=== PATIENT | male | born 1930 | race Caucasian/White ===

== ENCOUNTER 2018-04-08 15:28 | Inpatient (IN) | payer OTHER ==
[~2018-04-08] VITALS: Ht 172.7 cm; Wt 90.9 kg
[2018-04-08 16:48] LABS: BASOPHIL (%) 0.7 % (0-1); EOSINOPHIL (%) 1.5 % (0-5); EOSINOPHIL COUNT 0.1 K/uL (0-0.3); HEMATOCRIT 26.8 % (38.0-50.0); HEMOGLOBIN 9.2 G/DL (12.5-16.6); IMMATURE GRANULOCYTE (%) 0.5 % (0.0-0.7); LYMPHOCYTE (%) 12.2 % (15-42); LYMPHOCYTE COUNT 0.7 K/uL (1.0-2.8); MCH 30.8 PG (29.0-34.0); MCHC 34.3 G/DL (30.0-36.0); MCV 89.6 FL (86-99); MONOCYTE COUNT 0.4 K/uL (0-0.8); NEUTROPHIL (%) 77.1 % (45-76); NEUTROPHIL COUNT 4.2 K/uL (1.8-6.4); PLATELET COUNT 75 K/uL (156-360); RBC DIS.WIDTH-CV 14.5 % (11.8-14.6); RBC DIS.WIDTH-SD 46.6 % (39-53); RED BLOOD COUNT 2.99 M/uL (4.00-5.50); WHITE BLOOD COUNT 5.5 K/uL (4.1-10.2)
[2018-04-08 16:59] LABS: CHLORIDE 111 mEq/L (99-109); SODIUM 146 mEq/L (136-147)
[2018-04-08 17:01] LABS: GLUCOSE 138 mg/dL (70-99); TOTAL PROTEIN 6.6 g/dL (6.4-8.3)
[2018-04-08 17:03] LABS: TOTAL BILIRUBIN 1.6 mg/dL (0.0-1.0)
[2018-04-08 17:04] LABS: ALKALINE PHOSPHATASE 66 IU/L (3-129)
[2018-04-08 17:05] LABS: CREATININE 5.8 mg/dL (0.6-1.3); GFR ESTIMATE (CALCULATED) 10 mL/min/ (58.99-99999)
[2018-04-08 17:06] LABS: AST (GOT) 11 IU/L (2-34); UREA NITROGEN (BUN) 77 mg/dL (9-23)
[2018-04-08 17:07] LABS: ALT (GPT) 9 IU/L (3-49)
[2018-04-08 17:08] LABS: TROP-I INTERPRETATION NEGATIVE; TROPONIN-I 0.03 ng/mL (0.0-0.30)
[2018-04-08 17:58] LABS: APPEARANCE CLEAR ((CLEAR)); BILIRUBIN NEGATIVE; BLOOD NEGATIVE; COLOR YELLOW ((YELLOW)); GLUCOSE (STRIP) NEGATIVE; KETONES NEGATIVE; LEUKOCYTES NEGATIVE; NITRITE NEGATIVE; PROTEIN (STRIP) NEGATIVE; UROBILINOGEN 0.2 MG/DL (0.2-1.0)
[2018-04-08] MEDS ORDERED: LIPITOR20 MG PO ×2 (18:15→18:16)
[2018-04-08] MEDS ORDERED: CASODEX50 MG PO (18:17)
[2018-04-08] MEDS ORDERED: ROCALTROL0.25 MCG PO (18:17)
[2018-04-08] MEDS ORDERED: COSOPT EYE DROP10 ML BOTH EYES (18:18)
[2018-04-08] MEDS ORDERED: ERGOCALCIF50000 UNIT PO (18:19)
[2018-04-08] MEDS ORDERED: PROSCAR5 MG PO (18:24)
[2018-04-08] MEDS ORDERED: LASIX20 MG PO (18:26)
[2018-04-08] MEDS ORDERED: FOSRENOL500 MG PO (18:27)
[2018-04-08] MEDS ORDERED: XALATAN2.5 ML BOTH EYES (18:28)
[2018-04-08] MEDS ORDERED: SYNTHROID25 MCG PO (18:30)
[2018-04-08] MEDS ORDERED: LOPRESSOR50 MG PO (18:31)
[2018-04-08] MEDS ORDERED: PRILOSEC20 MG PO (18:33)
[2018-04-08] MEDS ORDERED: ZOFRAN4 MG PO (18:34)
[2018-04-08] MEDS ORDERED: KLOR-CON M1010 MEQ PO (18:38)
[2018-04-08] MEDS ORDERED: HYTRIN10 MG PO (18:39)
[2018-04-08] MEDS ORDERED: NORVASC10 MG PO (18:40)
[2018-04-08] MEDS ORDERED: PERCOCET 5/31 TABLET PO (18:41)
[2018-04-08 20:55] VITALS: BP 141/69
[2018-04-08 22:30] VITALS: BP 134/63
[2018-04-09 01:12] LABS: TROP-I INTERPRETATION NEGATIVE; TROPONIN-I 0.04 ng/mL (0.0-0.30)
[2018-04-09 04:06] VITALS: BP 132/64
[2018-04-09 05:53] LABS: BASOPHIL (%) 0.2 % (0-1); EOSINOPHIL (%) 0 % (0-5); HEMATOCRIT 28.2 % (38.0-50.0); HEMOGLOBIN 9.4 G/DL (12.5-16.6); LYMPHOCYTE (%) 6.4 % (15-42); LYMPHOCYTE COUNT 0.3 K/uL (1.0-2.8); MCH 29.9 PG (29.0-34.0); MCHC 33.3 G/DL (30.0-36.0); MCV 89.8 FL (86-99); MONOCYTE (%) 2.1 % (3-12); MONOCYTE COUNT 0.1 K/uL (0-0.8); NEUTROPHIL (%) 90.3 % (45-76); NEUTROPHIL COUNT 3.8 K/uL (1.8-6.4); PLATELET COUNT 86 K/uL (156-360); RBC DIS.WIDTH-CV 14.3 % (11.8-14.6); RED BLOOD COUNT 3.14 M/uL (4.00-5.50); WHITE BLOOD COUNT 4.2 K/uL (4.1-10.2)
[2018-04-09 06:15] LABS: TROP-I INTERPRETATION NEGATIVE; TROPONIN-I 0.05 ng/mL (0.0-0.30)
[2018-04-09 06:17] LABS: ALBUMIN 3.9 G/DL (3.2-4.8); CHLORIDE 104 MEQ/L (99-109); CREATININE 5.6 MG/DL (0.6-1.3); GFR ESTIMATE (CALCULATED) 10 mL/min/ (58.99-99999); GLUCOSE 164 mg/dL (70-99); MAGNESIUM 2.3 mg/dl (1.3-2.7); PHOSPHORUS 5.6 mg/dL (2.5-4.9); POTASSIUM 3.9 MEQ/L (3.7-5.4); SODIUM 142 MEQ/L (136-147); UREA NITROGEN (BUN) 76 mg/dL (9-23)
[2018-04-09 07:30] VITALS: BP 149/69
[2018-04-09 11:00] VITALS: BP 139/71
[2018-04-09 15:00] VITALS: BP 141/64
[2018-04-09 19:26] VITALS: BP 132/62
[2018-04-09 23:51] VITALS: BP 134/60
[2018-04-10 05:53] VITALS: BP 125/60
[2018-04-10 06:41] LABS: BASOPHIL (%) 0 % (0-1); EOSINOPHIL (%) 0 % (0-5); HEMATOCRIT 26.6 % (38.0-50.0); HEMOGLOBIN 8.8 G/DL (12.5-16.6); IMMATURE GRANULOCYTE (%) 0.7 % (0.0-0.7); LYMPHOCYTE (%) 5.1 % (15-42); LYMPHOCYTE COUNT 0.4 K/uL (1.0-2.8); MCH 29.5 PG (29.0-34.0); MCHC 33.1 G/DL (30.0-36.0); MCV 89.3 FL (86-99); MONOCYTE (%) 5.5 % (3-12); MONOCYTE COUNT 0.5 K/uL (0-0.8); NEUTROPHIL (%) 88.7 % (45-76); NEUTROPHIL COUNT 7.4 K/uL (1.8-6.4); PLATELET COUNT 89 K/uL (156-360); RBC DIS.WIDTH-CV 14.5 % (11.8-14.6); RBC DIS.WIDTH-SD 46.9 % (39-53); RED BLOOD COUNT 2.98 M/uL (4.00-5.50); WHITE BLOOD COUNT 8.4 K/uL (4.1-10.2)
[2018-04-10 07:00] VITALS: BP 165/72
[2018-04-10 07:06] LABS: CHLORIDE 101 MEQ/L (99-109); CREATININE 6.2 MG/DL (0.6-1.3); GFR ESTIMATE (CALCULATED) 9 mL/min/ (58.99-99999); GLUCOSE 161 mg/dL (70-99); POTASSIUM 3.8 MEQ/L (3.7-5.4); SODIUM 141 MEQ/L (136-147); UREA NITROGEN (BUN) 95 mg/dL (9-23)
[2018-04-10 10:35] LABS: ANTI-HEPATITIS B CORE (TOTAL) REACTIVE
[2018-04-10 10:37] LABS: HEPATITIS B SURFACE ANTIGEN Nonreactive; HEPATITIS C ANTIBODY Nonreactive
[2018-04-10 11:05] LABS: HEPATITIS B SURFACE ANTIBODY REACTIVE
[2018-04-10 11:35] VITALS: BP 139/63
[2018-04-10 11:42] LABS: ANTI-HEPATITIS B CORE (IGM) Nonreactive
[2018-04-10 19:30] VITALS: BP 137/62
[2018-04-10 23:35] VITALS: BP 123/56
[2018-04-11 03:41] VITALS: BP 145/70
[2018-04-11 06:42] LABS: BASOPHIL (%) 0.1 % (0-1); EOSINOPHIL (%) 0.4 % (0-5); HEMATOCRIT 25.8 % (38.0-50.0); HEMOGLOBIN 8.6 G/DL (12.5-16.6); IMMATURE GRANULOCYTE (%) 0.6 % (0.0-0.7); LYMPHOCYTE (%) 16.7 % (15-42); LYMPHOCYTE COUNT 1.2 K/uL (1.0-2.8); MCH 29.8 PG (29.0-34.0); MCHC 33.3 G/DL (30.0-36.0); MCV 89.3 FL (86-99); MONOCYTE (%) 8.9 % (3-12); MONOCYTE COUNT 0.6 K/uL (0-0.8); NEUTROPHIL (%) 73.3 % (45-76); NEUTROPHIL COUNT 5.2 K/uL (1.8-6.4); PLATELET COUNT 83 K/uL (156-360); RBC DIS.WIDTH-CV 14.4 % (11.8-14.6); RBC DIS.WIDTH-SD 46.4 % (39-53); RED BLOOD COUNT 2.89 M/uL (4.00-5.50); WHITE BLOOD COUNT 7.1 K/uL (4.1-10.2)
[2018-04-11 07:07] LABS: ALBUMIN 3.5 G/DL (3.2-4.8); CHLORIDE 100 MEQ/L (99-109); GLUCOSE 124 mg/dL (70-99); PHOSPHORUS 3.7 mg/dL (2.5-4.9); POTASSIUM 3.3 MEQ/L (3.7-5.4); SODIUM 143 MEQ/L (136-147); UREA NITROGEN (BUN) 60 mg/dL (9-23)
[2018-04-11 07:09] LABS: CREATININE 4.8 MG/DL (0.6-1.3); GFR ESTIMATE (CALCULATED) 12 mL/min/ (58.99-99999)
[2018-04-11 07:22] VITALS: BP 138/62
[2018-04-11 12:19] VITALS: BP 118/58
[2018-04-11] MEDS ORDERED: LASIX20 MG PO (16:02)
== END 2018-04-11 16:45 | disposition home or self-care (01) | DRG 683 ==
LOC: EME 15:28 → EDOF 18:41 → 5EAST 18:41 → ENRESERV 18:43 → 5EAST 20:49
PROVIDERS: Emergency Medicine; Hospitalist; Internal Medicine Nephrology
PROC: 5A1D70Z Performance of Urinary Filtration, Intermittent, Less than 6 Hours Per Day (ICD-10-PCS; principal; 2018-04-09)
DX: N18.6 End stage renal disease (principal); I13.2 Hypertensive heart and chronic kidney disease with heart failure and with stage 5 chronic kidney disease, or end stage renal disease; I50.9 Heart failure, unspecified; I48.91 Unspecified atrial fibrillation; D69.6 Thrombocytopenia, unspecified; I35.0 Nonrheumatic aortic (valve) stenosis; D63.1 Anemia in chronic kidney disease; E78.00 Pure hypercholesterolemia, unspecified; E78.5 Hyperlipidemia, unspecified; E03.9 Hypothyroidism, unspecified; I25.10 Atherosclerotic heart disease of native coronary artery without angina pectoris; N25.81 Secondary hyperparathyroidism of renal origin; N40.0 Benign prostatic hyperplasia without lower urinary tract symptoms; N27.1 Small kidney, bilateral; M10.9 Gout, unspecified; H90.5 Unspecified sensorineural hearing loss; H40.9 Unspecified glaucoma; M19.90 Unspecified osteoarthritis, unspecified site; Z85.46 Personal history of malignant neoplasm of prostate; Z86.73 Personal history of transient ischemic attack (TIA), and cerebral infarction without residual deficits; Z87.891 Personal history of nicotine dependence; Z95.1 Presence of aortocoronary bypass graft; Z88.0 Allergy status to penicillin
CPT/HCPCS: 71045; 71046; 76770; 78582; 80048; 80053; 80069; 81003; 83735; 83880; 83935; 84100; 84300; 84484; 85025; 85027; 86704; 86705; 86706; 86803; 87340; 87449; 93005; 93306; 93970; 94640; 94760; 94799; 99281; 99285; A9540; A9567; J0881; J1644; J1940; J1956; J2930